=== PATIENT | female | born 1965 | race Caucasian/White ===

== ENCOUNTER 2017-04-10 15:20 | Emergency (ER) | payer MEDICARE ==
[~2017-04-10] VITALS: Ht 160 cm; Wt 74.8 kg
[2017-04-10 15:38] VITALS: BP_SYST 161
--- NOTE | 2017-04-10 15:43 | NUR ---
Patient triaged and placed in waiting room. VSS and patient appears in no acute distress at this time. Accompanied by FRIEND, awaiting available bed, and MD notified of need for MSE.
--- NOTE | 2017-04-10 19:59 | NUR ---
Patient to ER bed 08 to gown for evaluation. Side rails up.
--- NOTE | 2017-04-10 20:00 | NUR ---
Patient to ER via triage with c/o right lower leg pain, s/p non-syncopal trip and fall. Patient had trip and fall on a hose, while at work. Slight swelling noted to leg. Patient denies LOC, neck or back pain. Patient able to ambulate with slow, steady gait without difficulty. No c/o pain or sob upon exertion. Awaiting evaluation by ER MD, will continue to observe and assess.
[2017-04-10] MEDS ORDERED: KETOROLAC TROMETHAMINE 60 MG/2 ML VIAL IM ONE (20:45)
--- NOTE | 2017-04-10 21:00 | NUR ---
Patient resting quietly in no acute distress with friend at bedside. Awaiting dispo.
--- NOTE | 2017-04-10 21:28 | NUR ---
Pt reports she had a fall today. Reports she tripped over a hose she landed on her hands and leg. Denies pain to the hands. Reports pain as 1/10 to R leg (calf area). Purple bruise noted to lateral aspect of calf on R leg. No acute distress noted. Will continue to monitor
[2017-04-10 21:50] VITALS: BP_SYST 155
--- NOTE | 2017-04-10 21:50 | NUR ---
Patient given written and verbal discharge instructions and verbalizes understanding. ER MD discussed with patient the results and treatment provided. Patient in stable condition. ID arm band removed. Rx of Motrin, Tramadol given. Patient educated on pain management and to follow up with PMD. Pain Scale 0. Opportunity for questions provided and answered. Patient left ER ambulating with slow, steady gait in no acute distress with friend at side. No adverse reaction to medication.
== END 2017-04-10 21:50 | disposition home or self-care (01) ==
LOC: SED 15:20
DX: S83.91XA Sprain of unspecified site of right knee, initial encounter (principal); W19.XXXA Unspecified fall, initial encounter; Y93.89 Activity, other specified; Y92.89 Other specified places as the place of occurrence of the external cause; Y99.8 Other external cause status
CPT/HCPCS: 73590; 96372; 99284; J1885

== ENCOUNTER 2017-06-28 17:33 | Inpatient (IN) | payer MEDICARE ==
[~2017-06-28] VITALS: Ht 160 cm; Wt 83.9 kg
[~2017-06-28 17:33] MED LIST: BUPIVACAINE /PF 0.25% 30 ML VIAL INJ ONE; EPINEPHrine 1 MG/ML AMP IV ONE; GLYCOPYRROLATE 0.2 MG/ML VIAL IJ ONE; MEPERIDINE HCL/PF 100 MG/ML AMP IM ONE; MIDAZOLAM HCL 5 MG/5 ML VIAL IVP ONE; NEOSTIGMINE METHYLSULFATE 1 MG/ML, 10 ML VIAL IVP ONE; NS 1000 ML BAG IV ONE; NS IRRIG SOLN 1000 ML IR ONE; ONDANSETRON HCL 4 MG/2 ML VIAL IVP ONE; PROPOFOL 200MG/ 20ML VIAL (DIPRIVAN) IV ONE; SEVOFLURANE 15 MIN GAS INH ONE; SUCCINYLCHOLINE CHLORIDE 20 MG/ML(QUELICIN) IVP ONE
[2017-06-28 17:58] VITALS: BP_SYST 206
[2017-06-28 18:45] LABS: BILIRUBIN,URINE 1+ (NEGATIVE); BLOOD, URINE 3+ (NEGATIVE); CLARITY/URINE HAZY (CLEAR); COLOR,URINE YELLOW (YELLOW); GLUCOSE,URINE NEGATIVE (NEGATIVE); KETONES,URINE 3+ (NEGATIVE); LEUKOCYTE ESTERASE ,URINE TRACE (NEGATIVE); NITRITE, URINE NEGATIVE (NEGATIVE); PROTEIN URINE TRACE (NEGATIVE); UROBILINOGEN,URINE 0.2 (0.2-1.0)
[2017-06-28 18:48] LABS: BASOPHILS # (AUTO) 0.1 K/uL (0.0-0.2); BASOPHILS % (AUTO) 0.4 % (0.0-2.0); EOSINOPHILS # (AUTO) 0.1 K/uL (0.0-0.4); EOSINOPHILS % (AUTO) 0.6 % (0.0-4.0); HEMOGLOBIN 15.1 g/dL (12.0-16.0); LYMPHOCYTES % (AUTO) 14.5 % (20.5-51.5); MEAN CORPUSCULAR HEMOGLOBIN 28 pg (27-31); MEAN CORPUSCULAR HGB CONC 33 % (32-36); MEAN CORPUSCULAR VOLUME 86 fL (79.0-98.0); MONOCYTES # (AUTO) 0.8 K/uL (0.0-1.0); MONOCYTES % (AUTO) 5.8 % (1.7-9.3); NEUTROPHILS # (AUTO) 10.5 K/uL (1.8-7.7); NEUTROPHILS % (AUTO) 78.7 % (40.0-70.0); PLATELET COUNT (AUTO) 325 K/uL (130-430); RED BLOOD CELL COUNT(AUTO) 5.33 MIL/uL (4.2-6.2); WHITE BLOOD COUNT (AUTO) 13.5 K/uL (4.8-10.8)
[2017-06-28 18:55] LABS: ANION GAP 10 (5-15); CALCIUM 10.7 mg/dL (8.4-11.0); CHLORIDE 99 mmol/L (98-107); CREATININE 0.62 mg/dL (0.55-1.30); GLUCOSE 116 mg/dL (70-99); POTASSIUM 3.5 mmol/L (3.5-5.1); SODIUM SERUM 137 mmol/L (136-145); UREA NITROGEN, BLOOD 10 mg/dL (8-21)
[2017-06-28 18:59] LABS: PROTHROMBIN TIME 9.8 SECS (9.5-12.5)
[2017-06-28 19:03] LABS: GFR AFRICAN AMERICAN 130 mL/min (>90)
[2017-06-28 19:04] LABS: ALANINE AMINOTRANSFERASE 27 U/L (12-78); ALBUMIN 3.8 g/dL (3.4-4.8); ASPARTATE AMINOTRANSFERASE 17 U/L (10-37); LIPASE 67 U/L (73-393); TOTAL BILIRUBIN 0.6 mg/dL (0.0-1.0)
[2017-06-28 19:13] LABS: BACTERIA,URINE FEW /HPF (None Seen); MUCUS,URINE 2+ /LPF (None Seen); YEAST,URINE Few /HPF (None Seen)
[2017-06-28] MEDS ORDERED: MORPHINE 4 MG/ML INJ. SYRINGE IVP ONE (19:15)
[2017-06-28] MEDS ORDERED: DIPHENHYDRAMINE INJ 50 MG/ML VIAL IVP ONE (19:15)
[2017-06-28] MEDS ORDERED: PIPERACILLIN/TAZO 3.38 GM in NS 50 ML IV ONE (19:15)
[2017-06-28] MEDS ORDERED: PIPERACILLIN/TAZOBACTAM 3.375 GM/VIAL (ZOSYN) IV ONE ×2 (19:40→22:39)
[2017-06-28] MEDS ORDERED: ONDANSETRON HCL 4 MG/2 ML VIAL IVP PRN (21:45)
[2017-06-28] MEDS ORDERED: ACETAMINOPHEN 325 MG TABLET PO PRN (21:45)
[2017-06-28 22:05] VITALS: BP_SYST 173
[2017-06-28] MEDS: D5LR 1,000 ML IV SCH (22:22)
[2017-06-29 00:08] VITALS: BP_SYST 164
[2017-06-29] MEDS: PIPERACILLIN/TAZO 3.375 GM in NS 50 ML IV SCH ×4 (00:36→17:10)
[2017-06-29] MEDS: KETOROLAC TROMETHAMINE 15 MG VIAL IVP PRN ×2 (00:37→15:34)
[2017-06-29 02:00] VITALS: BP_SYST 135
[2017-06-29] MEDS: D5LR 1,000 ML IV SCH ×2 (07:43→08:25)
[2017-06-29 08:00] VITALS: BP_SYST 141
[2017-06-29] MEDS ORDERED: ONDANSETRON HCL 4 MG/2 ML VIAL IVP PRN ×2 (11:45→13:15)
[2017-06-29] MEDS ORDERED: fentaNYL CITRATE/PF 100 MCG/2 ML AMP IVP PRN ×2 (11:45)
[2017-06-29] MEDS ORDERED: fentaNYL CITRATE/PF 100 MCG/2 ML AMP ONE (13:11)
[2017-06-29] MEDS ORDERED: ACETAMINOPHEN 325 MG TABLET PO PRN (13:15)
[2017-06-29] MEDS ORDERED: HYDROmorphone 1 MG INJ. 1 MG/ML AMPUL IVP PRN (13:15)
[2017-06-29] MEDS ORDERED: HYDROcodone/ACETAMIN 5-325 MG TAB (NORCO/ VICODIN) PO PRN (13:15)
[2017-06-29] MEDS: NACL 0.9% 1,000 ML IV SCH ×2 (14:13→23:06)
[2017-06-29] MEDS: CEFAZOLIN 1 GM IVPB PREMIX 50 ML IV SCH ×2 (14:17→21:10)
[2017-06-29] MEDS: metroNIDAZOLE 500 mg/NS 100 ML IV SCH ×2 (15:25→23:34)
[2017-06-29 16:00] VITALS: BP_SYST 127
[2017-06-29 17:23] VITALS: BP_SYST 130
[2017-06-29] MEDS: MORPHINE 4 MG/ML INJ. SYRINGE IVP PRN (19:37)
[2017-06-29 20:00] VITALS: BP_SYST 149
[2017-06-30] MEDS: PIPERACILLIN/TAZO 3.375 GM in NS 50 ML IV SCH ×5 (00:41→23:30)
[2017-06-30 00:44] VITALS: BP_SYST 146
[2017-06-30] MEDS: KETOROLAC TROMETHAMINE 15 MG VIAL IVP PRN (02:54)
[2017-06-30] MEDS: D5LR 1,000 ML IV SCH ×3 (03:45→23:32)
[2017-06-30] MEDS: NACL 0.9% 1,000 ML IV SCH ×2 (06:21→22:17)
[2017-06-30 07:17] LABS: ALBUMIN 2.6 g/dL (3.4-4.8); CALCIUM 8.6 mg/dL (8.4-11.0); CREATININE 0.68 mg/dL (0.55-1.30); TOTAL BILIRUBIN 1.1 mg/dL (0.0-1.0)
[2017-06-30 08:00] VITALS: BP_SYST 158
[2017-06-30 09:07] LABS: HEMATOCRIT 36.2 % (36-48); HEMOGLOBIN 12.2 g/dL (12.0-16.0); MEAN CORPUSCULAR HEMOGLOBIN 29 pg (27-31); MEAN CORPUSCULAR HGB CONC 34 % (32-36); MEAN CORPUSCULAR VOLUME 87 fL (79.0-98.0); RED BLOOD CELL COUNT(AUTO) 4.18 MIL/uL (4.2-6.2); WHITE BLOOD COUNT (AUTO) 11.5 K/uL (4.8-10.8)
[2017-06-30 09:08] LABS: BASOPHILS % (AUTO) 0.3 % (0.0-2.0); EOSINOPHILS % (AUTO) 0.1 % (0.0-4.0); LYMPHOCYTES # (AUTO) 1.7 K/uL (1.0-5.5); LYMPHOCYTES % (AUTO) 14.8 % (20.5-51.5); MONOCYTES # (AUTO) 0.9 K/uL (0.0-1.0); MONOCYTES % (AUTO) 8.1 % (1.7-9.3); NEUTROPHILS # (AUTO) 8.9 K/uL (1.8-7.7); NEUTROPHILS % (AUTO) 76.7 % (40.0-70.0); PLATELET COUNT (AUTO) 242 K/uL (130-430); RED CELL DISTRIBUTION WIDTH 13.4 % (9.0-15.0)
[2017-06-30] MEDS: MORPHINE 4 MG/ML INJ. SYRINGE IVP PRN ×2 (10:07→15:22)
[2017-06-30 11:26] VITALS: BP_SYST 163
[2017-06-30] MEDS ORDERED: MILK OF MAGNESIA 30 ML UDC PO ONE (13:00)
[2017-06-30] MEDS ORDERED: POTASSIUM CHLORIDE 20 MEQ TAB.PRT.SR PO ONE (13:00)
[2017-06-30 20:00] VITALS: BP_SYST 135
[2017-07-01 00:21] VITALS: BP_SYST 138
[2017-07-01] MEDS: NACL 0.9% 1,000 ML IV SCH ×2 (05:06→09:24)
[2017-07-01] MEDS: PIPERACILLIN/TAZO 3.375 GM in NS 50 ML IV SCH ×3 (05:15→17:44)
[2017-07-01 06:20] LABS: BASOPHILS % (AUTO) 0.4 % (0.0-2.0); EOSINOPHILS # (AUTO) 0.3 K/uL (0.0-0.4); EOSINOPHILS % (AUTO) 4.1 % (0.0-4.0); HEMATOCRIT 32.7 % (36-48); HEMOGLOBIN 11.1 g/dL (12.0-16.0); LYMPHOCYTES # (AUTO) 2.1 K/uL (1.0-5.5); LYMPHOCYTES % (AUTO) 24.4 % (20.5-51.5); MEAN CORPUSCULAR HEMOGLOBIN 30 pg (27-31); MEAN CORPUSCULAR HGB CONC 34 % (32-36); MEAN CORPUSCULAR VOLUME 87 fL (79.0-98.0); MONOCYTES # (AUTO) 0.9 K/uL (0.0-1.0); MONOCYTES % (AUTO) 11.1 % (1.7-9.3); NEUTROPHILS # (AUTO) 5.1 K/uL (1.8-7.7); PLATELET COUNT (AUTO) 225 K/uL (130-430); RED BLOOD CELL COUNT(AUTO) 3.77 MIL/uL (4.2-6.2); RED CELL DISTRIBUTION WIDTH 13.1 % (9.0-15.0); WHITE BLOOD COUNT (AUTO) 8.4 K/uL (4.8-10.8)
[2017-07-01 07:13] LABS: ALBUMIN 2.2 g/dL (3.4-4.8); CALCIUM 8.5 mg/dL (8.4-11.0); CREATININE 0.62 mg/dL (0.55-1.30); POTASSIUM 3.2 mmol/L (3.5-5.1)
[2017-07-01] MEDS: KETOROLAC TROMETHAMINE 15 MG VIAL IVP PRN (09:18)
[2017-07-01 11:22] VITALS: BP_SYST 143
[2017-07-01] MEDS ORDERED: POTASSIUM CHLORIDE 20 MEQ TAB.PRT.SR PO ONE (15:15)
[2017-07-01 21:14] VITALS: BP_SYST 141
[2017-07-01] MEDS: MORPHINE 4 MG/ML INJ. SYRINGE IVP PRN (21:35)
[2017-07-02] MEDS: PIPERACILLIN/TAZO 3.375 GM in NS 50 ML IV SCH ×3 (00:21→12:51)
[2017-07-02] MEDS: KETOROLAC TROMETHAMINE 15 MG VIAL IVP PRN (03:45)
[2017-07-02 09:59] VITALS: BP_SYST 138
[2017-07-02 12:30] VITALS: BP_SYST 137
[2017-07-02 16:10] VITALS: BP_SYST 137
[2017-07-02 16:12] VITALS: BP_SYST 145
[2017-07-02] MEDS ORDERED: AMOX-426 PO (16:16)
[2017-07-02] MEDS ORDERED: LACT1CAP69 PO (16:17)
== END 2017-07-02 17:52 | disposition home or self-care (01) | DRG 710 ==
LOC: SED 17:33 → STU 21:42 → SMU 06-29 17:00
PROVIDERS: ADMIT Internal Medicine; ATTEND Internal Medicine
PROC: 3E1M38Z Irrigation of Peritoneal Cavity using Irrigating Substance, Percutaneous Approach (ICD-10-PCS; 2017-06-29)
PROC: 0FT44ZZ Resection of Gallbladder, Percutaneous Endoscopic Approach (ICD-10-PCS; principal; 2017-06-29 09:45)
DX: A41.9 Sepsis, unspecified organism (principal); E43 Unspecified severe protein-calorie malnutrition; K80.00 Calculus of gallbladder with acute cholecystitis without obstruction; K66.0 Peritoneal adhesions (postprocedural) (postinfection); F17.200 Nicotine dependence, unspecified, uncomplicated; Z68.32 Body mass index [BMI] 32.0-32.9, adult
CPT/HCPCS: 36415; 71045; 80053; 81000-TC; 83605; 83690-TC; 84484; 84702-TC; 85025; 85610-TC; 85730-TC; 87040-TC; 87081; 87086; 88304; 93005; 94010; 96365; 96375; 99285; J0171; J0330; J0690; J1200; J1885; J2175; J2250; J2270; J2405; J2543; J2704; J2710; J3010; J3490; J7030; J7120